=== PATIENT | female | born 1935 | race African-American/Black ===

== ENCOUNTER → 2018-12-16 | Outpatient (CLI) | payer OTHER ==
--- NOTE | 2018-12-16 17:51 | Diagnostic Imaging Report ---
Indication: Left flank pain for 2 weeks Technique: Spiral acquisitions obtained through the abdomen and pelvis. No oral or IV contrast utilized, per urinary stone protocol. Multiplanar reconstructions were generated. Total dose length product 721.68 mGycm. CTDIvol(s) 13.68 mGy. Dose reduction achieved using automated exposure control Comparison: none Findings: No renal nor ureteral calculi, hydronephrosis, or hydroureter demonstrated. Normal bladder. Lack of IV contrast limits assessment of the renal parenchyma. There is a subcentimeter low-attenuation lesion in the anterior interpolar region of the left kidney which is too small to characterize. Tiny exophytic lesion off the upper pole of the right kidney is also too small to characterize. Lack of IV contrast limits assessment of the other solid organs. The liver is unremarkable. The gallbladder has been removed. There is dilatation of the extrahepatic bile ducts, common bile duct measuring up to 13 mm in diameter. No definite downstream obstructive lesion demonstrated, however. The pancreas, spleen, adrenals are unremarkable. No retroperitoneal or mesenteric mass or adenopathy. A 2.3 cm cyst is seen adjacent to the upper portion of the uterus, probably adnexal in origin. The uterus is somewhat prominent for age and somewhat lobulated, likely reflecting old fibroids. There is a small indirect left inguinal hernia which contains only fat. There are colonic diverticula. No evidence of diverticulitis. The appendix is normal. No small bowel distention. No free or loculated intraperitoneal gas or fluid is evident. The included lung bases are clear. The bones demonstrate degenerative spondylosis changes, are otherwise unremarkable. Impression: No acute abnormality. No evidence of urinary stone disease or obstructive uropathy Status post cholecystectomy. Dilatation of the extra hepatic bile ducts, without obvious downstream obstructive lesion, probably related to age and postcholecystectomy state. However, downstream obstruction is not completely excludable, and correlation with liver enzymes recommended, with consideration for MRCP is clinically indicated Colonic diverticulosis. No evidence of diverticulitis Subcentimeter low-attenuation renal lesions, too small to characterize, most likely a 9 simple cortical cysts. No further follow-up necessary Benign-appearing left adnexal cyst. No further follow-up necessary Somewhat lobulated prominent uterus, suspect old fibroid Other findings as noted, including degenerative spondylosis changes, small fat-containing left inguinal hernia This agrees with the preliminary interpretation provided overnight by [employer] teleradiology service. The CT scanner at [facility] is accredited by the [employer] and the scans are performed using protocols designed to limit radiation exposure to as low as reasonably achievable to attain images of sufficient resolution adequate for diagnostic evaluation.
== END | disposition home or self-care (01) ==
LOC: CAT 16:37
DX: R10.9 Unspecified abdominal pain (principal); K57.90 Diverticulosis of intestine, part unspecified, without perforation or abscess without bleeding; K44.9 Diaphragmatic hernia without obstruction or gangrene
CPT/HCPCS: 74176